=== PATIENT | female | born 1935 | race Caucasian/White ===

== ENCOUNTER 2020-08-27 12:10 | Inpatient (IN) | payer OTHER, MEDICAID ==
[~2020-08-27] VITALS: Ht 152.4 cm; Wt 72.1 kg
[2020-08-27] VITALS (10 sets, daily range): BP systolic 83–172; BP diastolic 56–113
[~2020-08-27 12:10] MED LIST: ASPI-867 PO; CARV3.1242 PO; CEPH500C2 PO; DOXY100C2 PO; FOLI-43 PO; LISI20TA31 PO; METH2.5T PO; PRED5TAB48 PO
[2020-08-27 12:59] LABS: BASOPHILS % 0.6 % (0.0-2.0); EOSINOPHILS % 1.1 % (0.0-5.0); HEMOGLOBIN. 12.6 g/dL (12.0-16.0); LYMPHOCYTES % 16.7 % (20.0-50.0); MEAN CORPUSCULAR HEMOGLOBIN 34.7 pg (28.0-32.0); MEAN CORPUSCULAR VOLUME 104.8 fL (81.0-99.0); MEAN PLATELET VOLUME 8.5 fl (7.4-10.4); MONOCYTES % 5.9 % (2.0-8.0); NEUTROPHILS % 75.7 % (40.0-76.0); PLATELET 231 x1000/uL (130-400); RED BLOOD CELL COUNT 3.63 mill/uL (4.2-5.4); RED CELL DISTRIBUTION WIDTH 15.2 % (11.6-14.6)
[2020-08-27 13:05] LABS: CHLORIDE 108 mEq/L (98-107)
[2020-08-27] MEDS ORDERED: ASPIRIN 81MG TABLET PO NR (17:30)
[2020-08-27] MEDS ORDERED: HEPARIN SODIUM 1,000 UNIT/1ML VIAL IV ONE (19:00)
[2020-08-27] MEDS ORDERED: IODIXANOL 320MG/ML 200ML BOTTLE ONE ×2 (19:47→21:11)
[2020-08-27] MEDS ORDERED: LIDOCAINE HCL 1% 20ML VIAL (Pyxis) INJ ONE (19:47)
[2020-08-27] MEDS ORDERED: MIDAZOLAM HCL 2 MG/2 ML VIAL ONE (19:57)
[2020-08-27] MEDS ORDERED: FENTANYL CITRATE/PF 50MCG/ML 2ML VIAL ONE (19:58)
[2020-08-27] MEDS ORDERED: IOHEXOL-300 100 ML BOTTLE ONE (20:37)
[2020-08-27] MEDS ORDERED: ATROPINE SULFATE 0.1MG/ML 10ML DISP.SYRIN ONE (20:46)
[2020-08-27] MEDS ORDERED: METOPROLOL TARTRATE 5MG/5ML VIAL IV ONE (20:54)
[2020-08-27] MEDS ORDERED: CLOPIDOGREL 75MG TABLET ONE (21:26)
[2020-08-27] MEDS ORDERED: PANTOPRAZOLE 40MG DR TABLET PO NR (22:00)
[2020-08-27] MEDS ORDERED: ASPIRIN 81MG TABLET PO SCH (22:00)
[2020-08-27] MEDS ORDERED: CARVEDILOL 6.25 MG TABLET PO NR (22:00)
[2020-08-27 23:06] LABS: HEMATOCRIT 37.1 % (36.0-48.0); HEMOGLOBIN 12.3 g/dL (12.0-16.0); MEAN CORPUSCULAR HEMOGLOBIN 34.4 pg (28.0-32.0); MEAN CORPUSCULAR VOLUME 103.8 fL (81.0-99.0); PLATELET 238 x1000/uL (130-400); RED BLOOD CELL COUNT 3.57 mill/uL (4.2-5.4); RED CELL DISTRIBUTION WIDTH 14.8 % (11.6-14.6)
[2020-08-27 23:19] LABS: CHLORIDE 107 mEq/L (98-107)
[2020-08-27 23:27] LABS: LDL CHOLESTEROL 129 mg/dL (5-100)
[2020-08-27 23:29] LABS: HDL CHOLESTEROL 63 mg/dL (40-59)
[2020-08-28] VITALS (67 sets, daily range): BP systolic 73–126; BP diastolic 40–81
[2020-08-28] MEDS ORDERED: POTASSIUM CHLORIDE 20MEQ TABLET SR PO SCH
[2020-08-28] MEDS ORDERED: FUROSEMIDE 20MG TABLET PO SCH
[2020-08-28] MEDS: LISINOPRIL 10MG TABLET PO SCH ×2 (09:00→21:00)
[2020-08-28 09:15] LABS: BASOPHILS % 0.9 % (0.0-2.0); EOSINOPHILS % 0.9 % (0.0-5.0); HEMATOCRIT. 35.1 % (36.0-48.0); HEMOGLOBIN. 11.8 g/dL (12.0-16.0); LYMPHOCYTES % 13.6 % (20.0-50.0); MEAN CORPUSCULAR HEMOGLOBIN 34.8 pg (28.0-32.0); MEAN CORPUSCULAR VOLUME 103.8 fL (81.0-99.0); MEAN PLATELET VOLUME 8.5 fl (7.4-10.4); MONOCYTES % 8.7 % (2.0-8.0); NEUTROPHILS % 75.9 % (40.0-76.0); PLATELET 223 x1000/uL (130-400); RED BLOOD CELL COUNT 3.38 mill/uL (4.2-5.4); RED CELL DISTRIBUTION WIDTH 15.1 % (11.6-14.6)
[2020-08-28 09:22] LABS: CHLORIDE 107 mEq/L (98-107)
[2020-08-28 09:29] LABS: PHOSPHORUS 2.8 mg/dL (2.5-4.9)
[2020-08-28] MEDS ORDERED: HYDRALAZINE 20MG/ML VIAL IV PRN (15:30)
[2020-08-28] MEDS ORDERED: ACETAMINOPHEN 650MG SUPP PR PRN (15:30)
[2020-08-28] MEDS ORDERED: HYDROCODONE/ACETAMINOPHEN 5/325MG TABLET PO PRN (15:30)
[2020-08-28] MEDS ORDERED: IPRATROPIUM/ALBUTEROL 0.5-3(2.5)MG/3ML NEB HHN PRN (15:30)
[2020-08-28] MEDS ORDERED: CEFTRIAXONE 1 G PREMIX 50 ML IV SCH (15:30)
[2020-08-28] MEDS ORDERED: DIPHENHYDRAMINE 50MG/ML VIAL IV PRN (15:30)
[2020-08-28] MEDS ORDERED: BISACODYL 10MG SUPP PR PRN (15:30)
[2020-08-28] MEDS: CLOPIDOGREL 75MG TABLET PO SCH (16:02)
[2020-08-28] MEDS ORDERED: AZITHROMYCIN 500 MG in DEXT 5% WATER 250 ML IV SCH (17:00)
[2020-08-28 18:21] LABS: CLARITY URINE CLEAR (CLEAR); COLOR URINE YELLOW (YELLOW); KETONES URINE NEGATIVE (NEGATIVE); LEUKOCYTE ESTERASE URINE 2+ (NEGATIVE); NITRITE URINE POSITIVE (NEGATIVE); OCCULT BLOOD URINE 1+ (NEGATIVE); PH URINE 7.5 (4.5-8.0); PROTEIN URINE NEGATIVE (NEGATIVE); SPECIFIC GRAVITY URINE 1.028 (1.005-1.030); UROBILINOGEN URINE 0.2 E.U./dL (0.2-1.0)
[2020-08-28] MEDS: CEFTRIAXONE 1,000 MG in DEXTROSE 5% WATER 50 ML IV SCH (18:27)
[2020-08-28 18:35] LABS: BG BASE EXCESS -3.4 mmol/L (-2.0-2.0); BG CARBOXYHEMOGLOBIN 0.3 % (0.5-1.5); BG FRACTION INSPIRED OXYGEN 21; BG HCO3 ACT 21.1 mmol/L (22.0-26.0); BG METHEMOGLOBIN 0.3 % (0.0-1.5); BG OXYHEMOGLOBIN 92.4 % (94.0-97.0); BG PH 7.385 (7.350-7.450); BG PO2 66.4 mmHg (75.0-100.0); BG SAMPLE SITE RIGHT RADIAL; BG TOTAL HEMOGLOBIN 13.2 g/dL (12.0-18.0); BG VENT MODE ROOM AIR
[2020-08-28] MEDS ORDERED: LACTULOSE 20G/30ML UDC PO PRN (21:00)
[2020-08-28] MEDS: ATORVASTATIN CALCIUM 40MG TABLET PO SCH (21:54)
[2020-08-28] MEDS: FAMOTIDINE 20MG TABLET PO SCH (21:54)
[2020-08-28 21:56] LABS: PROTHROMBIN TIME 10.8 sec (9.6-11.0)
[2020-08-28] MEDS: ACETAMINOPHEN 325MG TABLET PO PRN (23:54)
[2020-08-29] VITALS (10 sets, daily range): BP systolic 90–118; BP diastolic 42–79
[2020-08-29] MEDS: CLOPIDOGREL 75MG TABLET PO SCH (08:07)
[2020-08-29] MEDS: LISINOPRIL 10MG TABLET PO SCH ×2 (08:07→21:10)
[2020-08-29 10:16] LABS: BASOPHILS % 0.9 % (0.0-2.0); EOSINOPHILS % 1.9 % (0.0-5.0); HEMATOCRIT. 34.2 % (36.0-48.0); HEMOGLOBIN. 11.5 g/dL (12.0-16.0); MEAN CORPUSCULAR HEMOGLOBIN 35.3 pg (28.0-32.0); MEAN CORPUSCULAR VOLUME 104.7 fL (81.0-99.0); MEAN PLATELET VOLUME 8.8 fl (7.4-10.4); NEUTROPHILS % 81.2 % (40.0-76.0); PLATELET 225 x1000/uL (130-400); RED BLOOD CELL COUNT 3.26 mill/uL (4.2-5.4); RED CELL DISTRIBUTION WIDTH 15.1 % (11.6-14.6)
[2020-08-29] MEDS: CEFTRIAXONE 1,000 MG in DEXTROSE 5% WATER 50 ML IV SCH (17:04)
[2020-08-29] MEDS: ATORVASTATIN CALCIUM 40MG TABLET PO SCH (21:10)
[2020-08-29] MEDS: FAMOTIDINE 20MG TABLET PO SCH (21:11)
[2020-08-30] VITALS (10 sets, daily range): BP systolic 104–149; BP diastolic 43–65
[2020-08-30 08:22] LABS: HEMOGLOBIN 12.5 g/dL (12.0-16.0); MEAN CORPUSCULAR HEMOGLOBIN 35.5 pg (28.0-32.0); MEAN CORPUSCULAR VOLUME 105.3 fL (81.0-99.0); PLATELET 214 x1000/uL (130-400); RED BLOOD CELL COUNT 3.52 mill/uL (4.2-5.4); RED CELL DISTRIBUTION WIDTH 15.6 % (11.6-14.6)
[2020-08-30] MEDS: LISINOPRIL 10MG TABLET PO SCH ×2 (09:00→20:41)
[2020-08-30] MEDS: ASPIRIN 81MG TABLET PO SCH (10:10)
[2020-08-30] MEDS: CLOPIDOGREL 75MG TABLET PO SCH (10:10)
[2020-08-30] MEDS: CEFTRIAXONE 1,000 MG in DEXTROSE 5% WATER 50 ML IV SCH (19:32)
[2020-08-30] MEDS: ATORVASTATIN CALCIUM 40MG TABLET PO SCH (20:35)
[2020-08-30] MEDS: FAMOTIDINE 20MG TABLET PO SCH (20:35)
[2020-08-30] MEDS: ACETAMINOPHEN 325MG TABLET PO PRN (20:36)
[2020-08-31] VITALS (8 sets, daily range): BP systolic 99–125; BP diastolic 37–85
[2020-08-31 06:56] LABS: HEMATOCRIT 33.8 % (36.0-48.0); HEMOGLOBIN 11.5 g/dL (12.0-16.0); MEAN CORPUSCULAR HEMOGLOBIN 35.6 pg (28.0-32.0); MEAN CORPUSCULAR VOLUME 104.4 fL (81.0-99.0); PLATELET 217 x1000/uL (130-400); RED BLOOD CELL COUNT 3.24 mill/uL (4.2-5.4); RED CELL DISTRIBUTION WIDTH 14.7 % (11.6-14.6)
[2020-08-31] MEDS: ASPIRIN 81MG TABLET PO SCH (08:32)
[2020-08-31] MEDS: CLOPIDOGREL 75MG TABLET PO SCH (08:32)
[2020-08-31] MEDS: LISINOPRIL 10MG TABLET PO SCH (08:33)
== END 2020-08-31 13:55 | disposition home or self-care (01) | DRG 246 ==
LOC: ER 12:10 → CVICU 14:39 → EDBEDREQ 14:52 → EDBEDREQTM 14:52 → EDBEDREQ 19:07 → EDBEDREQTM 19:07 → EDBEDREQSVC 19:07 → ENRESERV 19:40 → 3WST 08-28 17:00
PROVIDERS: ADMIT Internal Medicine; ATTEND Internal Medicine
PROC: 027034Z Dilation of Coronary Artery, One Artery with Drug-eluting Intraluminal Device, Percutaneous Approach (ICD-10-PCS; principal; 2020-08-27)
PROC: 4A023N7 Measurement of Cardiac Sampling and Pressure, Left Heart, Percutaneous Approach (ICD-10-PCS; 2020-08-27)
PROC: B2111ZZ Fluoroscopy of Multiple Coronary Arteries using Low Osmolar Contrast (ICD-10-PCS; 2020-08-27)
PROC: B2151ZZ Fluoroscopy of Left Heart using Low Osmolar Contrast (ICD-10-PCS; 2020-08-27)
PROC: B41F1ZZ Fluoroscopy of Right Lower Extremity Arteries using Low Osmolar Contrast (ICD-10-PCS; 2020-08-27)
DX: I21.19 ST elevation (STEMI) myocardial infarction involving other coronary artery of inferior wall (principal); G92 Toxic encephalopathy; S42.212A Unspecified displaced fracture of surgical neck of left humerus, initial encounter for closed fracture; N39.0 Urinary tract infection, site not specified; D64.9 Anemia, unspecified; E78.5 Hyperlipidemia, unspecified; I25.10 Atherosclerotic heart disease of native coronary artery without angina pectoris; I10 Essential (primary) hypertension; W18.30XA Fall on same level, unspecified, initial encounter; Z20.822 Contact with and (suspected) exposure to COVID-19; E78.00 Pure hypercholesterolemia, unspecified; Z79.899 Other long term (current) drug therapy; I25.2 Old myocardial infarction; Z86.73 Personal history of transient ischemic attack (TIA), and cerebral infarction without residual deficits; Z79.02 Long term (current) use of antithrombotics/antiplatelets; Y93.89 Activity, other specified; Y92.89 Other specified places as the place of occurrence of the external cause; Y99.8 Other external cause status; G90.9 Disorder of the autonomic nervous system, unspecified
CPT/HCPCS: 36415; 36600; 71045; 73030; 80048; 80053; 80061; 81003; 82375; 82805; 82962; 83036; 83735; 83880; 84100; 84484; 85025; 85027; 85347; 87426; 92928; 93005; 93306; 93458; 93880; 93970; 97162; 99285; C1760; C1769; C1874; C1887; C1893; J0456; J0461; J0696; J1644; J2250; J3010; J3490; J7060; Q9967